=== PATIENT | male | born 1950 | race Caucasian/White ===

== ENCOUNTER 2020-12-29 17:27 | Emergency (ER) | payer OTHER ==
[2020-12-29 18:39] LABS: HEMOGLOBIN 15.5 gm/dl (14.0-17.5); RED BLOOD COUNT 5.19 M/UL (4.20-5.50); WHITE BLOOD COUNT 12.2 K/UL (4.5-11.0)
[2020-12-29 18:55] LABS: BUN/CREATININE RATIO 12 (0-10)
[2020-12-29] MEDS ORDERED: VENTOLIN HFA 66.7 GM INH (23:19)
[2020-12-29] MEDS ORDERED: DOXYCYCLINE MO100 MG PO (23:19)
== END 2020-12-29 23:32 | disposition home or self-care (01) ==
LOC: ER1 17:27
PROVIDERS: Physician Assistant
DX: R04.2 Hemoptysis (principal); R06.02 Shortness of breath; R07.9 Chest pain, unspecified; E78.5 Hyperlipidemia, unspecified; K21.9 Gastro-esophageal reflux disease without esophagitis; I10 Essential (primary) hypertension; Z87.891 Personal history of nicotine dependence; Z79.899 Other long term (current) drug therapy
CPT/HCPCS: 71045; 80053; 82550; 82553; 83874; 83880; 84484; 85025; 85379; 85610; 85730; 93005; 99285; Q9967

== ENCOUNTER → 2022-02-07 | Outpatient (CLI) | payer OTHER ==
[~2022-02-07] MED LIST: DOXYCYCLINE MO100 MG PO; VENTOLIN HFA 66.7 GM INH
== END ==
LOC: KOH-I 13:07 → CT 13:07
DX: R06.02 Shortness of breath (principal)
CPT/HCPCS: 71250